=== PATIENT | male | born 1960 | race African-American/Black ===

== ENCOUNTER 2017-08-19 23:46 | Outpatient (CLI) | payer OTHER | END 2017-08-19 23:47 | disposition critical access hospital (66) | LOC: EMS 23:46 | PROVIDERS: ATTEND Surgery | DX: R53.1 Weakness (principal); R51 Headache; R42 Dizziness and giddiness | CPT/HCPCS: A0425; A0429 ==

== ENCOUNTER 2017-08-20 00:05 | Observation (INO) | payer OTHER ==
--- NOTE | 2017-08-20 00:18 | ED Physician Documentation ---
PD HPI HEADACHE - Stated complaint Stated Complaint: NEURO - Chief complaint Chief Complaint: Neuro - History obtained from History obtained from: Patient, EMS - History of Present Illness Timing - onset: How many hours ago (2-3) Timing - onset during: Rest Timing - details: Abrupt onset, Still present (improved quite a bit but does not feel completely resolved, per patient.) Worst headache ever?: No: Worst headache ever? Location: Back, Right Quality: Throbbing, Aching Associated symptoms: Weakness (felt some weakness of right arm and leg, with feeling fumbly use.). No: Fever, Stiff neck, Nausea, Vomiting, Syncope, Seizure , Eye pain Improved by: No: Rest Worsened by: No: Light, Noise Contributing factors: Hypertension. No: Anticoagulated, Recent illness, Trauma Similar symptoms before: Diagnosis (CVA several years ago and then TIA epiosdes , with last one 2014. Had been feeling okay recently.) Recently seen: Not recently seen Review of Systems Constitutional: denies: Fever, Chills Eyes: denies: Loss of vision, Decreased vision, Photophobia Ears: denies: Loss of hearing Nose: denies: Rhinorrhea / runny nose, Congestion Throat: denies: Sore throat Cardiac: denies: Chest pain / pressure, Palpitations Respiratory: denies: Dyspnea, Cough GI: denies: Abdominal Pain, Nausea, Vomiting, Diarrhea Skin: denies: Rash, Lesions Neurologic: reports: Focal weakness, Numbness, Headache. denies: Near syncope, Confused, Altered mental status, Head injury Psychiatric: denies: Anxiety, Insomnia Endocrine: denies: Weight loss, Easy bruising / bleeding Immunocompromised: denies: Immunocompromised PD PAST MEDICAL HISTORY - Past Medical History Cardiovascular: Hypertension, High cholesterol Respiratory: CPAP use Neuro: CVA Endocrine/Autoimmune: None GI: None : Other HEENT: None Psych: Anxiety, Panic attacks Musculoskeletal: None Derm: None - Past Surgical History Past Surgical History: Yes Ortho: ACL reconstruction, Shoulder arthroplasty, Arthroscopic surgery, Spine surgery - Present Medications Home Medications: Ambulatory Orders Medication Instructions Recorded Confirmed Citalopram [CeleXA] 40 mg PO DAILY 02/21/14 08/20/17 hydroCHLOROthiazide [Hydrodiuril] 25 mg PO DAILY 02/21/14 08/20/17 Atorvastatin [Lipitor] 40 mg PO QPM 05/01/14 08/20/17 Clonazepam [Klonopin] 1 mg PO PRN PRN 05/01/14 08/20/17 [place]-3 Fatty Acids/Fish Oil [Fish 1,000 mg PO DAILY 05/01/14 08/20/17 Oil Softgel] Prazosin HCl 2 mg PO DAILY 05/01/14 08/20/17 Aspirin [Tiffanie] 325 mg PO DAILYWM #30 tablet 08/20/17 Buspirone HCl 5 mg PO DAILY 08/20/17 08/20/17 Cyclosporine [Restasis] 1 drops TID 08/20/17 08/20/17 - Allergies Allergies/Adverse Reactions: Allergies Allergy/AdvReac Type Severity Reaction Status Date / Time No Known Drug Allergies Allergy Verified 08/20/17 00:14 - Social History Does the pt smoke?: No Smoking Status: Never smoker Does the pt drink ETOH?: No Does the pt have substance abuse?: No - Family History Family history: reports: Non contributory - Immunizations Immunizations are current?: Yes - POLST Patient has POLST: No POLST Status: Full Code PD ED PE NORMAL - Vitals Vital signs reviewed: Yes - General General: Alert and oriented X 3, No acute distress, Well developed/nourished - HEENT HEENT: Ears normal, Moist mucous membranes, Pharynx benign - Neck Neck: Supple, no meningeal sign, No adenopathy, No bruit - Cardiac Cardiac: RRR, No murmur - Respiratory Respiratory: Clear bilaterally - Abdomen Abdomen: Soft, Non tender - Male Male : Deferred - Rectal Rectal: Deferred - Back Back: No CVA TTP - Derm Derm: Normal color, Warm and dry, No rash - Neuro Neuro: Alert and oriented X 3, superintendent service 2-12 intact, No sensory deficit, Normal speech, Other (mild weakness and incoordination right arm and leg. ) - Psych Psych: Normal mood, Normal affect Results - Vitals Vitals: Oxygen O2 Source Room air - Labs Labs: Laboratory Tests 08/20/17 08/20/17 00:55 00:55 WBC 6.7 RBC 4.92 Hgb 14.5 Hct 42.6 MCV 86.6 MCH 29.6 MCHC 34.1 RDW 13.1 Plt Count 165 MPV 7.9 Neut # 3.0 Lymph # 3.2 [place] # 0.5 Eos # 0.0 Baso # 0.0 Absolute Nucleated RBC 0.01 Nucleated RBCs 0.1 Sodium 138 Potassium 3.5 Chloride 100 L Carbon Dioxide 28 Anion Gap 10.0 BUN 11 Creatinine 1.0 Estimated GFR (MDRD) 93 Glucose 102 H Calcium 8.9 Magnesium 1.8 Total Bilirubin 0.7 AST 26 ALT 25 Alkaline Phosphatase 51 Total Protein 7.2 Albumin 4.0 Globulin 3.2 Albumin/Globulin Ratio 1.3 Lipase 35 - Rads (name of study) head CT Radiology: Prelim report reviewed (no bleed; no acute changes noted. ) PD MEDICAL DECISION MAKING - ED course Complexity details: reviewed old records, reviewed results, considered differential (TIA episodes in the past, but not for about 2 years. Had weakness right side but is not feeling completely back to baseline. To place in OBS for neuro checks and presume MRI in AM to assess for new CVA. ), d/w patient Departure - Departure Disposition: ED Place in Observation Clinical Impression: Right sided weakness TIA (transient ischemic attack) Qualifiers: Transient cerebral ischemia type: unspecified Qualified Code(s): G45.9 - Transient cerebral ischemic attack, unspecified Condition: Good Record reviewed to determine appropriate education?: Yes Discharge Date/Time: 08/20/17 03:30
[2017-08-20] MEDS ORDERED: ACETAMINOPHEN 325 MG TABLET PO STA (00:33)
[2017-08-20] MEDS ORDERED: SODIUM CHLORIDE 0.9% 1,000 ML IV ONE (00:33)
[2017-08-20] MEDS ORDERED: ACETAMINOPHEN 325 MG TABLET PO ONE (00:46)
[2017-08-20 01:12] LABS: BASOPHILS % (AUTO) 0.4 %; EOSINOPHILS % (AUTO) 0.5 %; HCT - HEMATOCRIT 42.6 % (42.0-52.0); HGB - HEMOGLOBIN 14.5 g/dL (14.0-18.0); LYMPHOCYTES # (AUTO) 3.2 10^3/uL (1.5-3.5); LYMPHOCYTES % (AUTO) 47.5 %; MEAN CORPUSCULAR HEMOGLOBIN 29.6 pg (27.0-31.0); MEAN CORPUSCULAR HGB CONC 34.1 g/dL (32.0-36.0); MEAN CORPUSCULAR VOLUME 86.6 fL (80.0-94.0); MEAN PLATELET VOLUME 7.9 fL (7.4-11.4); MONOCYTES # (AUTO) 0.5 10^3/uL (0.0-1.0); MONOCYTES % (AUTO) 7.2 %; NEUTROPHILS % (AUTO) 44.4 %; NUCLEATED RED BLOOD CELLS AUTO 0.1 /100WBC; RED BLOOD COUNT 4.92 10^6/uL (4.70-6.10); RED CELL DISTRIBUTION WIDTH 13.1 % (12.0-15.0); UNCORRECTED WHITE BLOOD COUNT 6.7 x10^3/uL; WHITE BLOOD COUNT 6.7 x10^3/uL (4.8-10.8)
[2017-08-20 01:23] LABS: ALBUMIN/GLOBULIN RATIO 1.3 (1.0-2.2); BILIRUBIN,TOTAL 0.7 mg/dL (0.2-1.0); CALCIUM 8.9 mg/dL (8.5-10.3); MAGNESIUM 1.8 mg/dL (1.7-2.8); POTASSIUM 3.5 mmol/L (3.5-5.0); TOTAL PROTEIN 7.2 g/dL (6.7-8.2)
--- NOTE | 2017-08-20 01:26 | CT Preliminary Report ---
Exam: CT Head W/O IMPRESSION: No acute intracranial process. [facility] SITE ID: [id number]
--- NOTE | 2017-08-20 01:36 | CT Report ---
EXAM: CT HEAD EXAM DATE: 08/20/2017 01:11 AM. CLINICAL HISTORY: Right-sided weakness, now improving. COMPARISON: Brain CT from 07/25/2015. TECHNIQUE: Multiaxial CT images were obtained from the foramen magnum to the vertex. IV contrast: Non e. Reformats: Coronal. In accordance with CT protocol optimization, one or more of the following dose reduction techniques w ere utilized for this exam: automated exposure control, adjustment of mA and/or KV based on patient s ize, or use of iterative reconstructive technique. FINDINGS: Parenchyma: No intraparenchymal hemorrhage. No evidence of mass, midline shift, or CT findings of acu te infarction. A small focus of encephalomalacia is again noted in the left frontal lobe. Willams-white differentiation is distinct. Extraaxial Spaces: Normal for age. No subdural or epidural collections identified. Ventricles: Normal in size and position. Sinuses: Imaged paranasal sinuses, orbits, and mastoids show no significant abnormality. Bones: No evidence of fracture or calvarial defect. Other: Mild intracranial atherosclerosis is noted. IMPRESSION: No acute intracranial process. [facility] Referring Provider Line: [phone] SITE ID: [id number]
[2017-08-20] MEDS ORDERED: ONDANSETRON 4 MG/2 ML VIAL IVP PRN (02:43)
[2017-08-20] MEDS ORDERED: IBUPROFEN 600 MG TABLET PO PRN (02:43)
[2017-08-20] MEDS ORDERED: SODIUM CHLORIDE FLUSH 0.9% 10 ML SYRINGE IVP PRN (02:43)
[2017-08-20] MEDS ORDERED: ACETAMINOPHEN 325 MG TABLET PO PRN (02:43)
[2017-08-20] MEDS ORDERED: PROCHLORPERAZINE 10 MG/2 ML VIAL IVP PRN (02:43)
--- NOTE | 2017-08-20 02:51 | HISTORY & PHYSICAL EXAMINATION ---
Chief Complaint - Chief Complaint Chief Complaint: Headache with right-sided weakness History of Present Illness - Admitted From Admitted From:: Emergency department - History Obtained From Records Reviewed: Yes History obtained from: Patient Exam Limitations: None - History of Present Illness HPI Comment/Other: Patient is a 57-year-old -British gentleman with a past medical history significant for hypertension, hyperlipidemia, Obstructive sleep apnea on CPAP CVA in 2010 with multiple TIAs since and history of anxiety who presents to the emergency department with a chief complaint of headache and right-sided weakness. The patient states he was in his normal state of health until around 10 PM this evening when he states he began to notice that his vision was blurry and he felt as though his coordination was off. He states he felt a severe headache on the right side of his head going down posteriorly. He states that with that he also noticed some numbness in his right hand and noticed that it was weak. He also states that his left leg was mildly weak but most of the weakness was in his right hand and right arm. The patient states that he does use Plavix and Lipitor at home which he is compliant with. The patient states that he has had episodes like this before that to resolve but given that the symptoms were not resolving he decided to come into the emergency department. Patient otherwise denies any runny nose, sore throat, nasal congestion, fevers, chills, shortness of breath, orthopnea, PND, increased lower extremity swelling , chest pain, abdominal pain, nausea, vomiting, diarrhea, constipation, urinary urgency, frequency, dysuria, joint pains, joint swelling, muscle aches, back pain, neck stiffness, changes in his appetite or any recent unintentional weight loss. On presentation to the emergency department the patient was afebrile and vital signs were within normal limits. The patient did not appear to be in any acute distress but he did have evidence of right sided weakness. The patient underwent a CT scan of his head which showed no acute intracranial process. The patient's EKG showed sinus rhythm without any atrial fibrillation. The patient underwent routine lab work which was all within normal limits. Given that the patient's symptoms had not resolved in the emergency department the patient was placed in observation for further stroke workup. History - Past Medical History Cardiovascular: reports: Hypertension, High cholesterol Respiratory: reports: Sleep apnea, CPAP use Neuro: reports: CVA Endocrine/Autoimmune: reports: None GI: reports: None : reports: Other HEENT: reports: None Psych: reports: Anxiety, Panic attacks Musculoskeletal: reports: None Derm: reports: None MRSA Hx?: No - Past Surgical History Ortho: reports: ACL reconstruction, Shoulder arthroplasty, Arthroscopic surgery , Spine surgery - Family & Social History Family History: Mother: Cancer (Mom had colon cancer and brother had throat cancer), Hypertension, Sister: Hypertension, Brother: Cancer, Hypertension Living arrangement: At home Living Situation: Alone Social History Notes: The patient lives in [place]. He was born in [place] but grew up in [place]. He moved to [facility] in 1993 he was in the [place]. The patient has 3 children he is . The patient was a former smoker he quit about 5 or 6 years ago he used to smoke 1 pack a day for about 20 years. He denies any illicit drug or alcohol use. - Substance History Use: Uses substance without health or social issues: NONE Abuse: Recurrent use of substance despite neg consequences: NONE Dependence: Experiences withdrawal or developed tolerances: NONE - POLST Patient has POLST: No POLST Status: Full Code Meds/Allgy - Home Medications Home Medications: Ambulatory Orders Medication Instructions Recorded Confirmed Citalopram [CeleXA] 40 mg PO DAILY 02/21/14 07/25/15 hydroCHLOROthiazide [Hydrodiuril] 25 mg PO DAILY 02/21/14 08/20/17 Atorvastatin [Lipitor] 40 mg PO QPM 05/01/14 08/20/17 Clonazepam [Klonopin] 1 mg PO PRN PRN 05/01/14 08/20/17 [place]-3 Fatty Acids/Fish Oil [Fish 1,000 mg PO DAILY 05/01/14 08/20/17 Oil Softgel] Prazosin HCl 2 mg PO DAILY 05/01/14 08/20/17 Buspirone HCl 1 tab PO DAILY 08/20/17 08/20/17 Cyclosporine [Restasis] 1 drops TID 08/20/17 08/20/17 - Allergies Allergies/Adverse Reactions: Allergies Allergy/AdvReac Type Severity Reaction Status Date / Time No Known Drug Allergies Allergy Verified 08/20/17 00:14 Review of Systems - Other Findings Other Findings: A comprehensive review of systems was performed the pertinent positives and negatives are stated above in the HPI and the remainder of the review of systems is negative. Exam - Vital Signs Vital Signs: Vital Signs x48h Temp Pulse Resp BP Pulse Ox 08/20/17 00:07 36.8 C 58 L 16 102/66 98 - Physical Exam General Appearance: positive: No acute distress, Alert Eyes Bilateral: positive: Normal inspection, PERRL, EOMI, No lid inflammation, Conjunctivae nml, No scleral icterus ENT: positive: ENT inspection nml, Pharynx nml, Dry mucous membranes. negative : Purulent nasal drainage, Pharyngeal erythema, Oral lesions Neck: positive: Nml inspection, Thyroid nml, No JVD, Trachea midline. negative : Thyromegaly, Lymphadenopathy (R), Lymphadenopathy (L), Carotid bruit, Tracheal deviation Respiratory: positive: Chest non-tender, No respiratory distress, Breath sounds nml. negative: Wheezes, Rales, Rhonchi Cardiovascular: positive: Regular rate & rhythm, No murmur, No gallop Peripheral Pulses: positive: 2+ Abdomen: positive: Non-tender, No organomegaly, Nml bowel sounds, No distention. negative: Guarding, Rebound, Hepatomegaly, Splenomegaly Back: positive: Nml inspection. negative: CVA tenderness (R), CVA tenderness (L ) Skin: positive: Color nml, No rash, Warm. negative: Cyanosis, Pallor Extremities: positive: Non-tender, Full ROM, Nml appearance, No pedal edema. negative: Joint swelling Neurologic/Psychiatric: positive: Oriented x3, CN's nml (2-12), Sensation nml, Mood/affect nml, Weakness (Right arm greater than right leg), Other (Ataxia). negative: Facial droop, Slurred/abnml speech Conclusion/Plan - Problem List (1) Right sided weakness Conclusion/Plan: Patient has history of CVA with residual right-sided weakness. The patient presented to the emergency department with a chief complaint of headache and worsening right upper greater than lower extremity weakness. The patient was found to have some right upper extremity weakness and mild right lower extremity weakness. The patient's CT head was negative and patient's symptoms did not resolve while he was in the emergency department therefore he was placed in observation for further workup. The patient takes Plavix and Lipitor at home. Plan: Aspirin Plavix Lipitor CTA head and neck MRI brain Echo Lipid profile Tele Neurochecks (2) Hypertension Conclusion/Plan: Hold home blood pressure medication and allow for permissive hypertension. Maintain systolic blood pressure less than 190 systolic and 110 diastolic Qualifiers: Hypertension type: essential hypertension Qualified Code(s): I10 - Essential (primary) hypertension (3) Hyperlipidemia Conclusion/Plan: Continue patient on Lipitor Check lipid profile (4) Anxiety Conclusion/Plan: Continue home dose of Celexa and buspirone Stable (5) DVT prophylaxis Conclusion/Plan: Placed on SCDs as patient presented with possible CVA therefore anticoagulation contraindicated. - Lab Results Lab results reviewed: Yes Fish Bones: 08/20/17 00:55 08/20/17 00:55 Other Lab Results: Laboratory Results WBC 6.7 x10^3/uL (4.8-10.8) 08/20/17 00:55 RBC 4.92 10^6/uL (4.70-6.10) 08/20/17 00:55 Hgb 14.5 g/dL (14.0-18.0) 08/20/17 00:55 Hct 42.6 % (42.0-52.0) 08/20/17 00:55 MCV 86.6 fL (80.0-94.0) 08/20/17 00:55 MCH 29.6 pg (27.0-31.0) 08/20/17 00:55 MCHC 34.1 g/dL (32.0-36.0) 08/20/17 00:55 RDW 13.1 % (12.0-15.0) 08/20/17 00:55 Plt Count 165 10^3/uL (130-450) 08/20/17 00:55 MPV 7.9 fL (7.4-11.4) 08/20/17 00:55 Neut # 3.0 10^3/uL (1.5-6.6) 08/20/17 00:55 Lymph # 3.2 10^3/uL (1.5-3.5) 08/20/17 00:55 [place] # 0.5 10^3/uL (0.0-1.0) 08/20/17 00:55 Eos # 0.0 10^3/uL (0.0-0.7) 08/20/17 00:55 Baso # 0.0 10^3/uL (0.0-0.1) 08/20/17 00:55 Absolute Nucleated RBC 0.01 x10^3/uL 08/20/17 00:55 Nucleated RBCs 0.1 /100WBC 08/20/17 00:55 Sodium 138 mmol/L (135-145) 08/20/17 00:55 Potassium 3.5 mmol/L (3.5-5.0) 08/20/17 00:55 Chloride 100 mmol/L (101-111) L 08/20/17 00:55 Carbon Dioxide 28 mmol/L (21-32) 08/20/17 00:55 Anion Gap 10.0 (6-13) 08/20/17 00:55 BUN 11 mg/dL (6-20) 08/20/17 00:55 Creatinine 1.0 mg/dL (0.6-1.2) 08/20/17 00:55 Estimated GFR (MDRD) 93 (>89) 08/20/17 00:55 Glucose 102 mg/dL (70-100) H 08/20/17 00:55 Calcium 8.9 mg/dL (8.5-10.3) 08/20/17 00:55 Magnesium 1.8 mg/dL (1.7-2.8) 08/20/17 00:55 Total Bilirubin 0.7 mg/dL (0.2-1.0) 08/20/17 00:55 AST 26 IU/L (10-42) 08/20/17 00:55 ALT 25 IU/L (10-60) 08/20/17 00:55 Alkaline Phosphatase 51 IU/L (42-121) 08/20/17 00:55 Total Protein 7.2 g/dL (6.7-8.2) 08/20/17 00:55 Albumin 4.0 g/dL (3.2-5.5) 08/20/17 00:55 Globulin 3.2 g/dL (2.1-4.2) 08/20/17 00:55 Albumin/Globulin Ratio 1.3 (1.0-2.2) 08/20/17 00:55 Lipase 35 U/L (22-51) 08/20/17 00:55 - Diagnostic Imaging Results Diagnostic Imaging Results: positive: Final report reviewed Diagnostic Imaging Results Comments: CT head Impression: No acute intracranial process. Issues/Core Measures - Anticipated LOS Anticipated Stay Length: Less than 2 midnights - DVT/VTE - Prophylaxis VTE/DVT Device ordered at admit?: Yes
[2017-08-20] MEDS: SODIUM CHLORIDE 0.9% 1,000 ML IV SCH ×2 (04:19→13:20)
[2017-08-20] MEDS: SODIUM CHLORIDE FLUSH 0.9% 10 ML SYRINGE IVP SCH ×2 (04:29→13:20)
[2017-08-20] MEDS ORDERED: IOPAMIDOL-300 100 ML VIAL ONE (06:11)
[2017-08-20 06:22] LABS: BASOPHILS % (AUTO) 0.3 %; EOSINOPHILS # (AUTO) 0.1 10^3/uL (0.0-0.7); EOSINOPHILS % (AUTO) 0.8 %; HCT - HEMATOCRIT 42.9 % (42.0-52.0); HGB - HEMOGLOBIN 14.6 g/dL (14.0-18.0); LYMPHOCYTES # (AUTO) 3.5 10^3/uL (1.5-3.5); MEAN CORPUSCULAR HEMOGLOBIN 29.4 pg (27.0-31.0); MEAN CORPUSCULAR VOLUME 86.3 fL (80.0-94.0); MEAN PLATELET VOLUME 7.9 fL (7.4-11.4); MONOCYTES # (AUTO) 0.5 10^3/uL (0.0-1.0); MONOCYTES % (AUTO) 7.6 %; NEUTROPHILS # (AUTO) 2.5 10^3/uL (1.5-6.6); NEUTROPHILS % (AUTO) 38.3 %; NUCLEATED RED BLOOD CELLS AUTO 0.1 /100WBC; RED BLOOD COUNT 4.97 10^6/uL (4.70-6.10); UNCORRECTED WHITE BLOOD COUNT 6.5 x10^3/uL; WHITE BLOOD COUNT 6.5 x10^3/uL (4.8-10.8)
[2017-08-20 06:32] LABS: INR 1.1 (0.8-1.2)
[2017-08-20 06:36] LABS: ALBUMIN/GLOBULIN RATIO 1.1 (1.0-2.2); CALCIUM 8.7 mg/dL (8.5-10.3); POTASSIUM 3.7 mmol/L (3.5-5.0); TOTAL PROTEIN 7.3 g/dL (6.7-8.2)
[2017-08-20 06:41] LABS: CHOL/HDL RATIO 3.1 (<5.0); CHOLESTEROL 105 mg/dL; HDL CHOLESTEROL 34 mg/dL; LDL/HDL RATIO 1.8 (<3.6); TRIGLYCERIDES 56 mg/dL; VLDL CHOLESTEROL 11 mg/dL
[2017-08-20] MEDS ORDERED: IOPAMIDOL-300 100 ML VIAL IVP ONE (06:50)
--- NOTE | 2017-08-20 07:48 | CT Preliminary Report ---
Exam: CT Neck Angio IMPRESSION: 1. No evidence of high-grade stenosis, dissection, occlusion, aneurysm, or vascular malformation with in the arteries of the neck. Concurrently obtained CTA of the head is dictated separately. 2. Mild atherosclerosis right carotid bifurcation and right carotid bulb with maximal stenosis of 10- 20%, mild by NASCET criteria 3. Moderate atherosclerosis left carotid bifurcation and left carotid bulb with maximal narrowing of 10-20%, mild by NASCET criteria . [facility] SITE ID: [id number]
--- NOTE | 2017-08-20 07:51 | CT Report ---
EXAM: CT ANGIOGRAM NECK EXAM DATE: 08/20/2017 06:59 AM. CLINICAL HISTORY: Right sided weakness. COMPARISON: Noncontrast CT head 08/20/2017 TECHNIQUE: Routine axial helical imaging was performed from the skull base through the aortic arch. I V Contrast: Yes. 80 cc Isovue 300 Reconstructions: Routine multiplanar 3D MIP reconstructions. Evalua tion of arterial stenosis is based on a NASCET method of measurement. In accordance with CT protocol optimization, one or more of the following dose reduction techniques w ere utilized for this exam: automated exposure control, adjustment of mA and/or KV based on patient s ize, or use of iterative reconstructive technique. FINDINGS: Right Carotid: Mild atherosclerosis right carotid bifurcation and right carotid bulb with maximal pavel nosis of 10-20%, mild by NASCET criteria The common carotid, internal carotid, and external carotid a rteries are patent. No evidence of dissection Left Carotid: Moderate atherosclerosis left carotid bifurcation and left carotid bulb with maximal na rrowing of 10-20%, mild by NASCET criteria . The common carotid, internal carotid, and external carot id arteries are patent. No evidence of dissection. Vertebrals: The left vertebral artery is dominant. The vertebrobasilar system shows no stenoses. Intracranial Circulation: Concurrently obtained CTA of the head is dictated separately. Other: The visualized lung apices are clear. Moderate multilevel degenerative spondylosis status post C4-C5 ACDF. No evidence of acute fracture or malalignment. The visualized soft tissues of the neck d emonstrate no acute abnormality. IMPRESSION: 1. No evidence of high-grade stenosis, dissection, occlusion, aneurysm, or vascular malformation with in the arteries of the neck. Concurrently obtained CTA of the head is dictated separately. 2. Mild atherosclerosis right carotid bifurcation and right carotid bulb with maximal stenosis of 10- 20%, mild by NASCET criteria 3. Moderate atherosclerosis left carotid bifurcation and left carotid bulb with maximal narrowing of 10-20%, mild by NASCET criteria . [facility] Referring Provider Line: [phone] SITE ID: [id number]
[2017-08-20] MEDS ORDERED: ASPIRIN 325 MG TABLET PO SCH (08:00)
--- NOTE | 2017-08-20 08:03 | CT Report ---
EXAM: CT ANGIOGRAM HEAD EXAM DATE: 08/20/2017 07:01 AM. CLINICAL HISTORY: Right sided weakness. COMPARISON: Noncontrast CT head and CTA of the neck performed separately. TECHNIQUE: Routine helical CTA imaging was performed through the head. IV Contrast: Yes. 80 cc Isovue 300 Reconstructions: Routine multiplanar 3D MIP reconstructions. NASCET Criteria are used for stenos is measurements. In accordance with CT protocol optimization, one or more of the following dose reduction techniques w ere utilized for this exam: automated exposure control, adjustment of mA and/or KV based on patient s ize, or use of iterative reconstructive technique. FINDINGS: Noncontrast CT head: Performed and dictated separately. Postcontrast CT head: No abnormal enhancement. CTA of the head: Anterior Circulation: Moderate atherosclerosis right carotid siphon, maximal stenosis 20%. Moderate a therosclerosis left carotid siphon, maximal stenosis 20%. Severe stenosis mid M1 segment left MCA (fo r example series 4 image 102, series 8 image 65) with likely greater than 90% stenosis. The right mid dle cerebral artery, and anterior cerebral arteries (AMY) are patent bilaterally. The anterior commun icating artery (A-COM) appears patent. No aneurysms, stenoses, or anatomic anomalies evident. Posterior Circulation: The superior vertebral artery, basilar, and posterior cerebral arteries ([place]) are patent. No aneurysms, stenoses, or anomalies evident. The P1 segments of the stress test technician bilaterally are small. Prominent posterior communicating arteries bilaterally primarily supplied the stress test technician which are otherwise unremarkable. Other: Patent dural venous sinuses. IMPRESSION: 1. Noncontrast CT head has been performed and dictated separately. No abnormal enhancement on the pos tcontrast CT head. CTA of the neck is dictated separately. 2. Severe stenosis mid M1 segment left MCA (for example series 4 image 102, series 8 image 65) with l ikely greater than 90% stenosis. 3. Moderate atherosclerosis right carotid siphon, maximal stenosis 20%. 4. Moderate atherosclerosis left carotid siphon, maximal stenosis 20%. 5. Near origin of the stress test technician bilaterally. [facility] Referring Provider Line: [phone] SITE ID: [id number]
[2017-08-20] MEDS ORDERED: CLOPIDOGREL 75 MG TABLET PO SCH (09:00)
[2017-08-20] MEDS ORDERED: PRAZOSIN 1 MG CAPSULE PO SCH (09:00)
[2017-08-20] MEDS ORDERED: POLYETHYLENE GLYCOL 3350 17 GM PACKET PO SCH (09:00)
[2017-08-20] MEDS ORDERED: hydroCHLOROthiazide 25 MG TABLET PO SCH (09:00)
[2017-08-20] MEDS ORDERED: busPIRone 5 MG TABLET PO SCH (09:00)
[2017-08-20] MEDS ORDERED: FAMOTIDINE 20 MG TABLET PO SCH (09:00)
--- NOTE | 2017-08-20 11:34 | Discharge Plan ---
Discharge Plan Disposition: Home, Self Care Condition: Good Prescriptions: Aspirin [Tiffanie] 325 mg PO DAILYWM #30 tablet Diet: Cardiac Activity Restrictions: No Restrictions Shower Restrictions: No Driving Restrictions: No Weight Bearing: Full Weight Instruction Topics: Stroke Risk Factors Additional Instructions or Follow Up instructions: PLEASE SEE YOUR PRIMARY CARE PROVIDER THIS WEEK AND LET THEM KNOW YOU WERE IN THE HOSPITAL. CONTINUE TO TAKE ALL HOME MEDICATIONS PRESCRIBED. YOUR RESULTS OF THE MRI MRA CAN BE REQUESTED BY YOUR PRIMARY CARE PROVIDER YOU NEED TO CONTINUE ON A HEART HEALTHY LOW FAT DIET YOU WILL NEED TO CONTINUE ON AN ASPIRIN AND STATIN MEDICATIONS RETURN TO THE ER IF SYMPTOMS CONTINUE OR YOU HAVE CHEST PAIN OR SHORTNESS OF BREATH No Smoking: If you smoke, Please STOP! Call for help.
--- NOTE | 2017-08-20 11:40 | DISCHARGE SUMMARY ---
"Discharge Summary Admit Date: 08/20/17 Discharge Date: 08/20/17 Discharging Provider: LUCRETIA GILL APRN Code Status: Attempt Resuscitation Condition at Discharge: Good Discharge Disposition: 01 Home, Self Care Discharge Facility Name: HOME - DIAGNOSES Admission Diagnoses: 1. ACUTE RIGHT SIDED WEAKNESS WITH POSSIBLE CVA/TIA 2. ESSENTIAL HYPERTENSION 3. GENERALIZED ANXIETY DISORDER 4. HYPELIPIDEMIA, MIXED Discharge Diagnoses with Status of Each Condition: 1. ACUTE RIGHT SIDED WEAKNESS WITH TIA WITH HISTORY OF CVA 2. ESSENTIAL HYPERTENSION 3. GENERALIZED ANXIETY DISORDER 4. HYPELIPIDEMIA, MIXED - HPI History of Present Illness: Patient is a 57-year-old -[place] gentleman with a past medical history significant for hypertension, hyperlipidemia, Obstructive sleep apnea on CPAP CVA in 2010 with multiple TIAs since and history of anxiety who presents to the emergency department with a chief complaint of headache and right-sided weakness. The patient states he was in his normal state of health until around 10 PM this evening when he states he began to notice that his vision was blurry and he felt as though his coordination was off. He states he felt a severe headache on the right side of his head going down posteriorly. He states that with that he also noticed some numbness in his right hand and noticed that it was weak. He also states that his left leg was mildly weak but most of the weakness was in his right hand and right arm. The patient states that he does use Plavix and Lipitor at home which he is compliant with. The patient states that he has had episodes like this before that to resolve but given that the symptoms were not resolving he decided to come into the emergency department. Patient otherwise denies any runny nose, sore throat, nasal congestion, fevers, chills, shortness of breath, orthopnea, PND, increased lower extremity swelling , chest pain, abdominal pain, nausea, vomiting, diarrhea, constipation, urinary urgency, frequency, dysuria, joint pains, joint swelling, muscle aches, back pain, neck stiffness, changes in his appetite or any recent unintentional weight loss. On presentation to the emergency department the patient was afebrile and vital signs were within normal limits. The patient did not appear to be in any acute distress but he did have evidence of right sided weakness. The patient underwent a CT scan of his head which showed no acute intracranial process. The patient's EKG showed sinus rhythm without any atrial fibrillation. The patient underwent routine lab work which was all within normal limits. Given that the patient's symptoms had not resolved in the emergency department the patient was placed in observation for further stroke workup. - CONSULTS | PROCEDURES Consultations: physical therapy Procedures: EKG SHOWED SINUS RATE AND NO ISHEMIA MRI AND MRA OF BRAIN AND NECK PENDING AT TIME OF DISCHARGE-PATIENT TO CALL WITH RESULTS CT OF HEAD AND NECK SHOWED NO ACUTE PROCESS, NO STENOSIS - HOSPITAL COURSE Hospital Course: HOSPITAL COURSE AND TREATMENT (1) Right sided weakness Patient has history of CVA with residual right-sided weakness. The patient presented to the emergency department with a chief complaint of headache and worsening right upper greater than lower extremity weakness. The patient was found to have some right upper extremity weakness and mild right lower extremity weakness. The patient's CT head was negative and patient's symptoms did not resolve while he was in the emergency department therefore he was placed in observation for further workup. The patient takes Plavix and Lipitor at home. Continue on Aspirin, Plavix, Lipitor, completed the CTA head and neck that was negative for acute stroke. completed MRI brain Echocardiogram completed, Lipid profile completed and showed elevated cholesterol, telemetry monitoring and neurochecks Q6. (2) Hypertension Conclusion/Plan: Held home blood pressure medication and allowed for permissive hypertension. Maintained systolic blood pressure less than 190 systolic and 110 diastolic Hypertension type: essential hypertension Qualified Code(s): I10 - Essential (primary) hypertension (3) Hyperlipidemia Conclusion/Plan: Continued patient on Lipitor Checked lipid profile (4) Anxiety Conclusion/Plan: Continued home dose of Celexa and buspirone remained Stable (5) DVT prophylaxis Conclusion/Plan: Placed on SCDs as patient presented with possible CVA therefore anticoagulation contraindicated. - ALLERGIES Allergies/Adverse Reactions: Allergies Allergy/AdvReac Type Severity Reaction Status Date / Time No Known Drug Allergies Allergy Verified 08/20/17 00:14 - MEDICATIONS Home Medications: Ambulatory Orders Medication Instructions Recorded Confirmed Citalopram [CeleXA] 40 mg PO DAILY 02/21/14 08/20/17 hydroCHLOROthiazide [Hydrodiuril] 25 mg PO DAILY 02/21/14 08/20/17 Atorvastatin [Lipitor] 40 mg PO QPM 05/01/14 08/20/17 Clonazepam [Klonopin] 1 mg PO PRN PRN 05/01/14 08/20/17 [place]-3 Fatty Acids/Fish Oil [Fish 1,000 mg PO DAILY 05/01/14 08/20/17 Oil Softgel] Prazosin HCl 2 mg PO DAILY 05/01/14 08/20/17 Aspirin [Tiffanie] 325 mg PO DAILYWM #30 tablet 08/20/17 Buspirone HCl 5 mg PO DAILY 08/20/17 08/20/17 Cyclosporine [Restasis] 1 drops TID 08/20/17 08/20/17 - PHYSICAL EXAM AT DISCHARGE General Appearance: positive: No acute distress, Alert Eyes Bilateral: positive: Normal inspection, PERRL, EOMI ENT: positive: ENT inspection nml, Pharynx nml, No signs of dehydration Neck: positive: Nml inspection, Thyroid nml, No JVD, Trachea midline Respiratory: positive: Chest non-tender, No respiratory distress, Breath sounds nml Cardiovascular: positive: Regular rate & rhythm, No murmur, No gallop Peripheral Pulses: positive: 2+ Abdomen: positive: Non-tender, No organomegaly, Nml bowel sounds, No distention Rectal: positive: Non-tender Back: positive: Nml inspection Skin: positive: Color nml, No rash, Warm, Dry Extremities: positive: Non-tender, Full ROM, Nml appearance Neurologic/Psychiatric: positive: Oriented x3, CN's nml (2-12), Motor nml, Sensation nml, Mood/affect nml - LABS Result Diagrams: 08/20/17 06:15 08/20/17 06:15 Other Lab Results: Abnormal Lab Results 08/20/17 08/20/17 00:55 06:15 Chloride 100 mmol/L L mmol/L (101-111) Glucose 102 mg/dL H mg/dL (70-100) HDL Cholesterol 34 mg/dL L mg/dL (60 - ) - DIAGNOSTIC IMAGING Diagnostic Imaging Results: Prelim report reviewed, Final report reviewed - FOLLOW UP Follow Up: PATIENT WAS INSTRUCTED TO SEE PRIMARY CARE PROVIDER TO SEE A VASCULAR PROVIDER RELATED TO THE STENOSIS IN MCA AT 90%. OTHER REPORTS OF CT WERE NEGATIVE FOR SIGNIFICANT STENOSIS HE WAS INSTRUCTED TO TAKE ASPIRIN 81MG DAILY AND REMAIN ON PLAVIX UNTIL PROVIDER CAN SEE HIM HE WAS INSTRUCTED TO CONTINUE ON A HEART HEALTHY DIET AND DRINK PLENTY OF WATER DAILY INSTRUCTED TO RETURN TO THE ER IF SYMPTOMS WORSEN OR HE HAS CHEST PAIN OR SHORTNESS OF BREATH - TIME SPENT Time Spent in Discharge (Minutes): 45 (FOR ASSESSMENT AND DISHARGE PLANNING)"
[2017-08-20] MEDS ORDERED: clonazePAM 0.5 MG TABLET PO STA (15:52)
[2017-08-20 15:53] VITALS: BP 134/77
[2017-08-20] MEDS ORDERED: clonazePAM 0.5 MG TABLET PO ONE (15:59)
--- NOTE | 2017-08-20 17:00 | MRI Preliminary Report ---
Exam: MRI Brain W/O IMPRESSION: 1. No acute CVA is present on diffusion weighted images. 2. A small remote ischemic event is seen involving the cortex and white matter of the postcentral gyr us on the left. 3. Scattered subcortical and deep white matter FLAIR hyperintensities in the cerebral hemisphere whit e matter bilaterally are nonspecific. Commonly, these are secondary to small vessel ischemic change. [facility] SITE ID: [id number]
--- NOTE | 2017-08-20 17:03 | MRI Report ---
EXAM: MRI BRAIN WITHOUT CONTRAST EXAM DATE: 08/20/2017 04:30 PM. CLINICAL HISTORY: Right sided weakness. COMPARISON: CT angiogram head and neck from today. CT head from today. TECHNIQUE: Multiplanar, multisequence T1-weighted and fluid-sensitive MR sequences of the brain were performed. Sequences optimized for rapid evaluation secondary to patient claustrophobia. Other: None. IV Contrast: None. FINDINGS: No cerebellar tonsillar ectopia is present. No abnormal diffusion signal or magnetic susceptibility is identified in the brain parenchyma. There is encephalomalacia and gliosis seen superiorly involving the cortex and white matter of the so mewhat lateral aspect of the postcentral gyrus on the left. Subcortical FLAIR hyperintensities are seen in the cerebral hemisphere white matter bilaterally. Thes e are greater number on the right relative to left. No abnormal FLAIR hyperintense signal is seen in either cerebellum or in the brainstem. There is motion degradation on some of the imaging sequences. IMPRESSION: 1. No acute CVA is present on diffusion weighted images. 2. A small remote ischemic event is seen involving the cortex and white matter of the postcentral gyr us on the left. 3. Scattered subcortical and deep white matter FLAIR hyperintensities in the cerebral hemisphere whit e matter bilaterally are nonspecific. Commonly, these are secondary to small vessel ischemic change. [facility] Referring Provider Line: [phone] SITE ID: [id number]
[2017-08-20] MEDS ORDERED: ATORVASTATIN 40 MG TABLET PO SCH (21:00)
== END 2017-08-20 17:11 | disposition home or self-care (01) ==
LOC: EDUNIT# → ED 00:05 → OBS 02:44
PROVIDERS: ADMIT Internal Medicine; ATTEND Nurse Practitioner
DX: G45.9 Transient cerebral ischemic attack, unspecified (principal); R53.1 Weakness; I10 Essential (primary) hypertension; F41.9 Anxiety disorder, unspecified; E78.5 Hyperlipidemia, unspecified; G47.33 Obstructive sleep apnea (adult) (pediatric); Z79.02 Long term (current) use of antithrombotics/antiplatelets; Z79.82 Long term (current) use of aspirin; Z79.899 Other long term (current) drug therapy; Z87.891 Personal history of nicotine dependence; Z86.73 Personal history of transient ischemic attack (TIA), and cerebral infarction without residual deficits
CPT/HCPCS: 36415; 70450; 70496; 70498; 70551; 80053; 80061; 83690; 83735; 85025; 85610; 93005; 93306; 99213; 99285; A9270; G0378; Q9967

== ENCOUNTER 2023-07-02 09:45 | Outpatient (CLI) | payer MEDICARE, OTHER ==
[2023-07-02 12:39] LABS: BASOPHILS % (AUTO) 0.4 %; EOSINOPHILS % (AUTO) 0.4 %; HCT - HEMATOCRIT 44.9 % (42.0-52.0); HGB - HEMOGLOBIN 15.1 g/dL (14.0-18.0); LYMPHOCYTES # (AUTO) 1.8 10^3/uL (1.5-3.5); LYMPHOCYTES % (AUTO) 32.7 %; MEAN CORPUSCULAR HEMOGLOBIN 28.3 pg (27.0-31.0); MEAN CORPUSCULAR HGB CONC 33.6 g/dL (32.0-36.0); MEAN CORPUSCULAR VOLUME 84.1 fL (80.0-94.0); MEAN PLATELET VOLUME 10.2 fL (7.4-11.4); MONOCYTES # (AUTO) 0.5 10^3/uL (0.0-1.0); MONOCYTES % (AUTO) 8.5 %; NEUTROPHILS # (AUTO) 3.2 10^3/uL (1.5-6.6); NEUTROPHILS % (AUTO) 57.5 %; PLT - PLATELET COUNT 248 10^3/uL (130-450); RED BLOOD COUNT 5.34 10^6/uL (4.70-6.10); RED CELL DISTRIBUTION WIDTH 13.2 % (12.0-15.0); WHITE BLOOD COUNT 5.5 x10^3/uL (4.8-10.8)
[2023-07-02 12:57] LABS: INR 1.1 (0.8-1.2); PT - PROTHROMBIN TIME 11.9 secs (9.9-12.6)
[2023-07-02 13:01] LABS: ALBUMIN 4.4 g/dL (3.2-5.5); ALBUMIN/GLOBULIN RATIO 1.3 (1.0-2.2); BILIRUBIN,TOTAL 0.6 mg/dL (0.2-1.0); CALCIUM 9.4 mg/dL (8.5-10.3); POTASSIUM 3.6 mmol/L (3.5-4.5); TOTAL PROTEIN 7.7 g/dL (6.4-8.9)
[2023-07-02 13:04] LABS: PARTIAL THROMBOPLASTIN TIME 29.6 secs (24.9-33.3)
== END 2023-07-02 10:00 | disposition home or self-care (01) ==
LOC: LAB.N 09:45
PROVIDERS: ATTEND Nurse Practitioner
DX: Z86.79 Personal history of other diseases of the circulatory system (principal)
CPT/HCPCS: 36415; 80053; 85025; 85610; 85730